=== PATIENT | male | born 1970 | race Caucasian/White ===

== ENCOUNTER → 2017-05-05 | Outpatient (CLI) | payer BC ==
--- NOTE | 2017-05-05 12:59 | Diagnostic Imaging Report ---
PROCEDURE: MRI right joint lower extremity without contrast. TECHNIQUE: Multiplanar, multisequence non contrast-enhanced MRI of the right lower extremity was accomplished. INDICATION: Locking, felt a pop in the right knee, medial and posterior right knee pain and swelling. History of arthroscopy years ago. COMPARISON: None. FINDINGS: No acute fracture or dislocation is seen in the right knee. Small subcortical cyst-like changes are seen in the anterior medial tibia, likely degenerative. There are also subcortical cyst-like changes in the patella which are degenerative as well. A small right knee joint effusion is present. There is a multiseptated moderate-sized Flores's cyst which measures 2.1 x 1.4 cm in size on axial imaging and approximately 4 cm craniocaudal. Mild adjacent edema suggests leaking. There is marked irregularity with high-grade cartilage loss at the patellar articular cartilage, particularly over the median ridge and medial facet. There is heterogeneity and surface irregularity of the trochlear articular cartilage. The articular cartilage in the medial and lateral compartments demonstrates heterogeneity and surface irregularity, but no full-thickness articular surface defects are seen. There is markedly complex tearing of the posterior horn and body of the medial meniscus. The meniscus is partially extruded. The lateral meniscus appears intact. There is marked thickening of the medial collateral ligament, likely from remote trauma. The medial collateral ligament is mildly bowed, from the meniscal pathology. No discrete tear is seen. The lateral collateral ligamentous complex appears intact. The anterior and posterior cruciate ligaments are intact. The extensor mechanism is intact. There is moderate edema in Hoffa's fat pad and mild edema in the anterior subcutaneous tissues. Mild intramuscular edema is seen in the soleus. No other soft tissue fluid collections are seen. The common peroneal and tibial nerves are unremarkable. IMPRESSION: 1. Markedly complex tearing of the posterior horn and body of the medial meniscus in the right knee. 2. High-grade cartilage loss at the patellofemoral compartment. 3. Small joint effusion with multiseptated, moderate-sized, leaking Flores's cyst. Dictated by: Dictated on workstation # [id number]
== END ==
LOC: RAD 10:41
PROVIDERS: ATTEND Family Medicine
DX: S83.241A Other tear of medial meniscus, current injury, right knee, initial encounter (principal); M94.8X8 Other specified disorders of cartilage, other site; M71.21 Synovial cyst of popliteal space [Baker], right knee
CPT/HCPCS: 73721